=== PATIENT | male | born 1965 | race Two or more races ===

== ENCOUNTER 2018-11-17 12:00 | Outpatient (CLI) | payer OTHER ==
[~2018-11-17 12:00] MED LIST: IRBE300T16 PO; LEVO500T8 PO; NITR100C6 PO; TAMS-11 PO
== END 2018-11-17 23:59 | disposition home or self-care (01) ==
LOC: CVU 12:00
PROVIDERS: ATTEND Internal Medicine Cardiovascular Disease
DX: R07.89 Other chest pain (principal)
CPT/HCPCS: 0399T; 93306